=== PATIENT | female | born 1995 | race African-American/Black ===

== ENCOUNTER 2018-01-10 01:06 | Emergency (ER) | payer SELFPAY ==
[2018-01-10] MEDS ORDERED: predniSONE 10 MG TABLET (01:38)
[2018-01-10] MEDS: predniSONE 10 MG TABLET PO (01:40)
[2018-01-10] MEDS: ALBUTEROL SULFATE 2.5 MG/3 ML NEBU. CONT NEB (01:49)
== END 2018-01-10 03:35 | disposition home or self-care (01) ==
LOC: ER 01:06
DX: J45.909 Unspecified asthma, uncomplicated (principal); F17.200 Nicotine dependence, unspecified, uncomplicated
CPT/HCPCS: 71045; 94644; 99285-25; J7512; J7613